=== PATIENT | female | born 1975 | race Caucasian/White ===

== ENCOUNTER 2016-12-17 10:30 | Emergency (ER) | payer OTHER ==
[~2016-12-17] VITALS: Ht 170.2 cm; Wt 93.2 kg
[~2016-12-17 10:30] MED LIST: ADIPEX-P37.5 MG PO; ATARAX 25MG25 MG/TAB PO; BACTRIM DS 8001 TAB PO; DECADRON 4MG TAB4 MG PO; ENTOCORT EC3 MG PO; FLUOCINOLONE TP; SPRINTEC 35 MCG1 TAB PO
[2016-12-17] MEDS ORDERED: ULTRAM 50MG TAB50 MG PO (10:39)
[2016-12-17 11:18] LABS: BASO % 0.4 % (0.0-2.0); EOS % 0.7 % (0-4.0); GRAN % 65.9 % (42.2-75.2); HEMATOCRIT 42.6 % (37.0-47.0); HEMOGLOBIN 14.4 g/dl (12.5-16.0); LYMPH # 1.3 (1.2-3.4); LYMPH % 27.7 % (20.0-51.0); MEAN CELL VOLUME 90 fl (80.0-100.0); MEAN CORPUSCULAR HEMOGLOBIN 30 pg (27.0-31.0); MEAN CORPUSCULAR HGB CONC 34 g/dl (33.0-37.0); MEAN PLATELET VOLUME 9.2 fl (7.4-10.4); MONO # 0.2 (0.1-0.6); MONO % 5.3 % (1.7-9.3); PLATELET COUNT 213 K/mm3 (130-400); RED BLOOD COUNT 4.74 M/mm3 (4.10-5.30); REDCELL DISTRIBUTION WIDTH-CV 12.6 % (11.5-14.5); WHITE BLOOD COUNT 4.5 K/mm3 (4.8-10.8)
[2016-12-17 11:43] LABS: ADJUSTED CALCIUM 9.2 mg/dL (8.4-10.2); BILIRUBIN,TOTAL 0.9 mg/dL (0.0-1.0); CALCIUM 9.2 mg/dL (8.4-10.2); CREATININE, serum 0.74 mg/dL (0.52-1.25); POTASSIUM 3.8 mmol/L (3.4-5.0); TOTAL PROTEIN 6.5 gm/dL (6.4-8.2)
[2016-12-17 11:57] LABS: PH 8 (5-8); SQUAMOUS EPITHELIAL 0-2 /hpf; URINE APPEARANCE Clear; URINE BACTERIA Rare /hpf; URINE BILIRUBIN Negative (NEGATIVE); URINE BLOOD 1+ (NEGATIVE); URINE COLOR Straw; URINE GLUCOSE Negative (NEGATIVE); URINE KETONE Negative (NEGATIVE); URINE RBC 0-2 /hpf; URINE UROBILINOGEN Negative (NEGATIVE); URINE WBC 0-2 /hpf
[2016-12-17 12:04] VITALS: BP 110/50; PULSE 77; TEMP 98.6
[2016-12-17 12:08] LABS: HIV 1/2 Antibodies Non-Reactive; HIV-1p24 Antigen Non-Reactive
== END 2016-12-17 12:05 | disposition home or self-care (01) ==
LOC: COL.ER 10:30
PROVIDERS: Nurse Practitioner
DX: S69.92XA Unspecified injury of left wrist, hand and finger(s), initial encounter (principal); Z20.6 Contact with and (suspected) exposure to human immunodeficiency virus [HIV]; Z98.890 Other specified postprocedural states; W46.1XXA Contact with contaminated hypodermic needle, initial encounter

== ENCOUNTER → 2017-06-20 | Outpatient (CLI) | payer OTHER ==
[~2017-06-20] MED LIST changes: +ULTRAM 50MG TAB50 MG PO
[2017-06-20 14:27] LABS: HIV 1/2 Antibodies Non-Reactive; HIV-1p24 Antigen Non-Reactive
== END ==
LOC: COL.LAB 13:02
PROVIDERS: Anesthesiology Pain Medicine
DX: B20 Human immunodeficiency virus [HIV] disease (principal)

== ENCOUNTER 2019-03-06 21:24 | Emergency (ER) | payer BC ==
[~2019-03-06] VITALS: Ht 170.2 cm; Wt 109.1 kg
[2019-03-06 21:26] VITALS: BP 166/85; TEMP 99.1
[2019-03-06 22:28] VITALS: PULSE 89
== END 2019-03-06 22:22 | disposition home or self-care (01) ==
LOC: COL.ER 21:24
DX: S05.92XA Unspecified injury of left eye and orbit, initial encounter (principal); W34.00XA Accidental discharge from unspecified firearms or gun, initial encounter

== ENCOUNTER → 2020-02-24 | Outpatient (CLI) | payer BC | LOC: MC.RAD 06:51 | DX: Z12.31 Encounter for screening mammogram for malignant neoplasm of breast (principal) ==

== ENCOUNTER 2020-10-20 19:37 | Emergency (ER) | payer BC ==
[~2020-10-20] VITALS: Ht 167.6 cm; Wt 93.6 kg
[2020-10-20 20:13] LABS: BASO % 0.3 % (0.0-2.0); EOS # 0.1 (0.0-0.7); GRAN % 56.3 % (42.2-75.2); HEMATOCRIT 42.6 % (37.0-47.0); HEMOGLOBIN 13.9 g/dl (12.5-16.0); LYMPH # 2.5 (1.2-3.4); LYMPH % 34.8 % (20.0-51.0); MEAN CELL VOLUME 93 fl (80.0-100.0); MEAN CORPUSCULAR HEMOGLOBIN 30 pg (27.0-31.0); MEAN CORPUSCULAR HGB CONC 33 g/dl (33.0-37.0); MEAN PLATELET VOLUME 9.3 fl (7.4-10.4); MONO # 0.5 (0.1-0.6); MONO % 7.5 % (1.7-9.3); PLATELET COUNT 279 K/mm3 (130-400); REDCELL DISTRIBUTION WIDTH-CV 13.1 % (11.5-14.5)
[2020-10-20 20:19] LABS: ALANINE AMINOTRANSFERASE 25 U/L (4-34); ALBUMIN 3.9 gm/dL (3.5-5.0); ALKALINE PHOSPHATASE 59 U/L (50-136); ANION GAP 10 mmol/L (7-16); AST,SGOT 24 U/L (15-37); BILIRUBIN,TOTAL 0.2 mg/dL (0.0-1.0); BLOOD UREA NITROGEN 11 mg/dL (7-17); CALCIUM 8.8 mg/dL (8.4-10.2); CARBON DIOXIDE 26 mmol/L (22-30); CHLORIDE 105 mmol/L (98-107); CREATININE, serum 0.99 (0.52-1.25); GLUCOSE 101 mg/dL (74-106); POTASSIUM 3.3 mmol/L (3.4-5.0); SODIUM 140 mmol/L (137-145); TOTAL PROTEIN 6.8 gm/dL (6.4-8.2)
[2020-10-20 20:31] LABS: TROPONIN-I < 0.012 ng/mL (0.000-0.035)
[2020-10-20 23:11] VITALS: BP 116/71; PULSE 84; TEMP 98
== END 2020-10-20 23:11 | disposition home or self-care (01) ==
LOC: COL.ER 19:37
PROVIDERS: Emergency Medicine
DX: R00.2 Palpitations (principal); R07.89 Other chest pain; R06.02 Shortness of breath; Z88.8 Allergy status to other drugs, medicaments and biological substances; Z87.891 Personal history of nicotine dependence

== ENCOUNTER → 2021-06-01 | Outpatient (CLI) | payer BC | LOC: MC.RAD 07:00 | DX: Z12.31 Encounter for screening mammogram for malignant neoplasm of breast (principal) ==

== ENCOUNTER → 2021-12-06 | Outpatient (CLI) | payer BC | LOC: COL.RAD 11:46 | DX: M75.112 Incomplete rotator cuff tear or rupture of left shoulder, not specified as traumatic (principal); M75.111 Incomplete rotator cuff tear or rupture of right shoulder, not specified as traumatic; M19.011 Primary osteoarthritis, right shoulder; M19.012 Primary osteoarthritis, left shoulder; M75.52 Bursitis of left shoulder; M75.51 Bursitis of right shoulder; M75.82 Other shoulder lesions, left shoulder; M75.81 Other shoulder lesions, right shoulder ==